=== PATIENT | female | born 1975 | race Caucasian/White ===

== ENCOUNTER 2023-01-09 07:15 | Day surgery (SDC) | payer MEDICAID ==
[~2023-01-09] VITALS: Ht 165.1 cm; Wt 64.9 kg
[2023-01-09] MEDS ORDERED: MIDAZOLAM HCL 5 MG/5 ML VIAL ONE (07:41)
[2023-01-09] MEDS ORDERED: fentaNYL CITRATE/PF 100 MCG/2 ML AMP ONE (07:41)
[2023-01-09 07:51] LABS: HCG,QUAL RESULT NEGATIVE (NEGATIVE)
[2023-01-09 08:33] VITALS: O2SAT 98
[2023-01-09 11:06] VITALS: BP_SYST 108; PULSE 56; RESP 16
== END 2023-01-09 09:45 | disposition home or self-care (01) ==
LOC: SDS 07:15 → SMU 07:21 → SDS 09:45
PROVIDERS: ATTEND Internal Medicine
DX: Z12.11 Encounter for screening for malignant neoplasm of colon (principal); D12.0 Benign neoplasm of cecum; K64.8 Other hemorrhoids
CPT/HCPCS: 45380; 84703; 88305; 99152; G0378; J2250; J3010